=== PATIENT | female | born 2000 | race African-American/Black ===

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

== ENCOUNTER 2023-12-18 16:48 | Emergency (ER) | payer BC, OTHER ==
[2023-12-18 16:58] VITALS: BP 129/87; PULSE 97; RESP 18; TEMP 97.7; BMI 42.5
[2023-12-18] MEDS ORDERED: predniSONE 20 MG TABLET (UD) ONE (17:44)
[2023-12-18] MEDS ORDERED: ALBUTEROL SO4 2.5/IPRATROPIUM 0.5 INH SOL 3 ML VIAL.NEB. NEB ONE (17:44)
[2023-12-18] MEDS: predniSONE 20 MG TABLET (UD) PO ONE (17:46)
[2023-12-18] MEDS: ALBUTEROL SO4 2.5/IPRATROPIUM 0.5 INH SOL 3 ML VIAL.NEB. NEB ONE (17:53)
== END 2023-12-18 18:40 | disposition home or self-care (01) ==
LOC: JERFT 16:48 → JER 16:48 → JERFT 18:40
PROC: 3E0F7GC Introduction of Other Therapeutic Substance into Respiratory Tract, Via Natural or Artificial Opening (ICD-10-PCS; principal; 2023-12-18)
DX: J45.909 Unspecified asthma, uncomplicated (principal); R07.89 Other chest pain; R06.02 Shortness of breath
CPT/HCPCS: 71046-TC-FY; 99283-25